=== PATIENT | female | born 2000 | race African-American/Black ===

== ENCOUNTER 2020-06-27 10:23 | Emergency (ER) | payer SELFPAY ==
[2020-06-27] MEDS ORDERED: Acetaminophen 500 MG TAB ONE (10:54)
--- NOTE | 2020-06-27 10:54 | RAD ---
RADIOGRAPH CHEST 1 VIEW: DATE: 06/27/2020 HISTORY: 20-year-old female with hemoptysis and fever FINDINGS: The visualized lung bermudez are clear. The cardiomediastinal silhouette and hilar shadows are normal. The lateral costophrenic angles are sharp. The osseous structures appear normal. There is no pneumothorax. IMPRESSION: Negative.
[2020-06-27 18:06] LABS: SARS-CoV-2 MS2 Positive; SARS-CoV-2 N Gene Positive; SARS-CoV-2 S Gene Positive; SARS-CoV-2 by NAA DETECTED (NotDetected); SARS-CoV-2 orf1ab Positive
== END 2020-06-27 11:52 | disposition home or self-care (01) ==
LOC: ERS 10:23
DX: U07.1 COVID-19 (principal)
CPT/HCPCS: 71045; 87635; 87804; U0003

== ENCOUNTER 2020-10-24 09:21 | Emergency (ER) | payer OTHER, SELFPAY ==
[2020-10-24 15:10] LABS: SARS-CoV-2 PCR by NAA Not Detected (NotDetected)
== END 2020-10-24 10:51 | disposition home or self-care (01) ==
LOC: ERS 09:21
DX: J30.9 Allergic rhinitis, unspecified (principal); R19.7 Diarrhea, unspecified; R51.9 Headache, unspecified
CPT/HCPCS: 87635; 99284; U0003; U0005